=== PATIENT | male | born 1960 | race Two or more races ===

== ENCOUNTER 2024-08-02 06:24 | Emergency (ER) | payer OTHER ==
[~2024-08-02] VITALS: Ht 182.9 cm; Wt 77.1 kg
[2024-08-02] MEDS ORDERED: METHYLPREDNISOLONE SOD SUCC 125 MG VIAL IM STA (08:32)
[2024-08-02] MEDS ORDERED: METHYLPREDNISOLONE SOD SUCC 125 MG VIAL ONE (08:32)
== END 2024-08-02 09:01 | disposition home or self-care (01) ==
LOC: ER 06:24
DX: M19.90 Unspecified osteoarthritis, unspecified site (principal); Z88.6 Allergy status to analgesic agent

== ENCOUNTER 2024-08-13 06:51 | Outpatient (CLI) | payer OTHER ==
[2024-08-13 07:38] LABS: BASO % 0.4 % (0.1-1.2); EOS # 0.04 (0.04-0.54); EOS % 0.5 % (0.7-7.0); HEMATOCRIT 44.1 % (40.1-51.0); HEMOGLOBIN 13.9 g/dL (13.7-17.5); LYMPH # 2.08 (1.18-3.74); LYMPH % 27.2 % (19.3-53.1); MONO # 0.65 (0.24-0.82); MONO % 8.5 % (4.7-12.5); NEUT % 62.9 % (34.0-71.1); PLATELET COUNT 189 K/uL (163-369); RED BLOOD COUNT 5.15 M/uL (4.63-6.08); RED CELL DISTRIBUTION WIDTH 12.2 % (11.6-14.4)
[2024-08-13 08:11] LABS: ERYTHROCYTE SEDIMENTATION RATE 10 mm/hr (0-20)
[2024-08-13 08:12] LABS: PARTIAL THROMBOPLASTIN TIME 26.9 SECONDS (22.0-34.0); PROTHROMBIN TIME 10.9 SECONDS (9.0-11.5)
[2024-08-13 08:56] LABS: ALBUMIN 3.7 gm/dL (3.4-5.0); BILIRUBIN TOTAL 0.93 mg/dL (0.3-1.2); CALCIUM 9.2 mg/dL (8.5-10.1); CHOL HDL RATIO 4.2 (0-5.0); CREATININE SERUM 0.68 mg/dL (0.70-1.30); GFR 117.77; GLOBULINA 3.8 G/DL (2.4-3.5); POTASSIUM 4.59 mEq/L (3.5-5.1); PROSTATIC SPECIFIC ANTIGEN 2.43 NG/ML (0.010-4.00); T4 FREE 0.85 NG/ML (0.76-1.46); TOTAL PROTEIN 7.5 gm/dL (6.4-8.2); TSH 3.59 uIU/mL (0.358-3.74)
[2024-08-13 09:05] LABS: URINE APPEARANCE Clear; URINE BILIRRUBIN Negative (NEGATIVE); URINE BLOOD Negative; URINE COLOR Yellow; URINE GLUCOSE Negative (NEGATIVE); URINE KETONE Negative (NEGATIVE); URINE LEUKOCYTE Negative; URINE NITRATE Negative; URINE PROTEIN Negative (NEGATIVE)
[2024-08-13 09:08] LABS: URINE RBC 8.5 uL (0.0-20.8)
[2024-08-13 09:21] LABS: URINE BACTERIA 2.4 uL (0.0-1933); URINE EPITHELIAL CELLS 1.2 uL (0.0-38.8); URINE WBC 1.7 uL (0.0-23.2)
[2024-08-13 12:59] LABS: ob NEGATIVE (NEGATIVE)
[2024-08-14 15:12] LABS: CYCLIC CITRULLINE PEPTIDE 10 units (0-19)
== END 2024-08-13 06:53 | disposition home or self-care (01) ==
LOC: LAB 06:51
PROVIDERS: ATTEND Internal Medicine
DX: D64.9 Anemia, unspecified (principal); E11.8 Type 2 diabetes mellitus with unspecified complications; I48.91 Unspecified atrial fibrillation; N39.0 Urinary tract infection, site not specified; E03.9 Hypothyroidism, unspecified; M35.1 Other overlap syndromes; E11.9 Type 2 diabetes mellitus without complications; E55.9 Vitamin D deficiency, unspecified; Z12.5 Encounter for screening for malignant neoplasm of prostate; Z12.11 Encounter for screening for malignant neoplasm of colon; R97.20 Elevated prostate specific antigen [PSA]; N40.0 Benign prostatic hyperplasia without lower urinary tract symptoms; N41.9 Inflammatory disease of prostate, unspecified

== ENCOUNTER 2024-08-13 07:24 | Outpatient (CLI) | payer OTHER | END 2024-08-13 07:37 | disposition home or self-care (01) | LOC: RAD 07:24 | PROVIDERS: ATTEND Internal Medicine | DX: M19.90 Unspecified osteoarthritis, unspecified site (principal); M17.0 Bilateral primary osteoarthritis of knee; M25.561 Pain in right knee; M25.562 Pain in left knee; I11.9 Hypertensive heart disease without heart failure; M25.551 Pain in right hip; M25.552 Pain in left hip ==

== ENCOUNTER 2024-09-17 06:28 | Outpatient (CLI) | payer OTHER ==
[2024-09-17 08:12] LABS: ALT/SGPT 50.0 U/L (12-78); AST/SGOT 24.0 U/L (15-37); BILIRUBIN TOTAL 0.76 mg/dL (0.3-1.2); BILIRUBIN,CONJUGATED 0.15 mg/dL (0.0-0.2); CHOL HDL RATIO 3.3 (0-5.0); HDL 52.0 mg/dl (40-60); LDL 78.0 mg/dl (0-130); PHOSPHOKINASE CREATININE 66.0 U/L (39-308); VLDL 41.0 (0-39)
== END 2024-09-17 06:32 | disposition home or self-care (01) ==
LOC: LAB 06:28
PROVIDERS: ATTEND Internal Medicine
DX: D64.9 Anemia, unspecified (principal); E11.8 Type 2 diabetes mellitus with unspecified complications; I48.91 Unspecified atrial fibrillation; N39.0 Urinary tract infection, site not specified; E03.9 Hypothyroidism, unspecified; M35.1 Other overlap syndromes; E11.9 Type 2 diabetes mellitus without complications; E55.9 Vitamin D deficiency, unspecified; Z12.5 Encounter for screening for malignant neoplasm of prostate